=== PATIENT | female | born 1990 | race Caucasian/White ===

== ENCOUNTER 2018-10-10 02:45 | Inpatient (IN) | payer MEDICAID ==
[~2018-10-10] VITALS: Ht 157.5 cm; Wt 93.0 kg
[~2018-10-10 02:45] MED LIST: NAPR-1154 PO
[2018-10-10] MEDS ORDERED: normal saline 1000ML IV soln IV ONE (03:05)
[2018-10-10] MEDS ORDERED: clindamycin 600mg/D5W 50ml 50 ML IV ONE (03:05)
[2018-10-10] MEDS ORDERED: iohexol 300mg/ml 100ml inj. ONE (03:13)
[2018-10-10 03:59] LABS: BASOPHILS # (AUTO) 0.1 X10'3 (0-0.2); BASOPHILS % (AUTO) 0.6 % (0-1); EOSINOPHILS # (AUTO) 0.4 X10'3 (0-0.9); EOSINOPHILS % (AUTO) 2.8 % (0-6); HEMOGLOBIN 13.6 g/dl (12.0-16.0); LYMPHOCYTES # (AUTO) 1.5 X10'3 (1.1-4.8); LYMPHOCYTES % (AUTO) 10.5 % (21-51); MEAN CORPUSCULAR HEMOGLOBIN 27.7 PG (27.0-31.0); MEAN CORPUSCULAR HGB CONC 33.2 g/dL (33.0-36.5); MEAN CORPUSCULAR VOLUME 83.4 FL (78-98); MEAN PLATELET VOLUME 7.4 FL (7.4-10.4); MONOCYTES % (AUTO) 7.3 % (2-12); NEUTROPHILS # (AUTO) 11.2 X10'3 (1.8-7.7); NEUTROPHILS % (AUTO) 78.8 % (42-75); PLATELET COUNT 306 X10'3 (140-440); RED BLOOD COUNT 4.91 X10'6 (4.20-5.60); RED CELL DISTRIBUTION WIDTH 14.8 % (11.5-14.5); WHITE BLOOD COUNT 14.2 X10'3 (4.5-11.0)
[2018-10-10 04:15] LABS: ALANINE AMINOTRANSFERASE 23 U/L (12-78); ALBUMIN 3.6 G/DL (3.4-5.0); ALBUMIN/GLOBULIN RATIO 0.9 (1.1-1.5); ALKALINE PHOSPHATASE 100 IU/L (46-116); ANION GAP 7 (8-16); ASPARTATE AMINO TRANSFERASE 15 U/L (10-37); BILIRUBIN,TOTAL 0.4 MG/DL (0.1-1.0); BLOOD UREA NITROGEN 8 MG/DL (7-18); CALCIUM 9.6 MG/DL (8.5-10.1); CHLORIDE 102 MMOL/L (99-107); GLUCOSE 96 MG/DL (70-104); MAGNESIUM 1.6 MG/DL (1.5-2.4); POTASSIUM 4.1 MMOL/L (3.5-5.1); SODIUM 138 MMOL/L (135-145); TOTAL CARBON DIOXIDE 29.5 MMOL/L (24-32); TOTAL PROTEIN 7.7 G/DL (6.4-8.2); eGFR 87 ML/MIN
[2018-10-10 04:19] LABS: PARTIAL THROMBOPLASTIN TIME 31 SECONDS (22-32)
[2018-10-10] MEDS ORDERED: NO HOME MEDS (05:25)
--- NOTE | 2018-10-10 05:25 | NUR ---
DR. MACK AT BEDSIDE TALKING WITH PATIENT
[2018-10-10] MEDS ORDERED: acetaminophen 325mg tablet PO PRN (05:30)
[2018-10-10] MEDS ORDERED: mag hydrox/Alum hydrox/simeth 30ml oral suspension PO PRN (05:30)
[2018-10-10] MEDS ORDERED: magnesium hydroxide 30ml (MOM) UD suspension PO PRN (05:30)
[2018-10-10] MEDS ORDERED: vancomycin/NS 1 GM ADD-VANTAGE 250 ML IV ONE (05:30)
[2018-10-10] MEDS ORDERED: ondansetron/PF 4mg/2ml inj IV PRN (05:30)
[2018-10-10] MEDS ORDERED: morphine 2 MG/ML inj. syringe IV PRN (05:30)
[2018-10-10] MEDS: normal saline 1000ml 1,000 ML IV SCH ×3 (06:39→22:02)
--- NOTE | 2018-10-10 06:48 | NUR ---
received report from Adwoa in the ER
[2018-10-10] MEDS ORDERED: vancomycin inj 1,250 MG in NS 250ml IV soln IV SCH (07:00)
--- NOTE | 2018-10-10 07:25 | NUR ---
patient arrived to floor went into room 4011
[2018-10-10 07:39] VITALS: BP 156/102
[2018-10-10] MEDS ORDERED: ringers solution, lacted 1,000 ML IV ONE (07:40)
[2018-10-10 07:47] LABS: URINE HCG NEGATIVE (NEG)
[2018-10-10 08:32] LABS: CLARITY,URINE CLOUDY (Clear); COLOR,URINE YELLOW (Yellow); GLUCOSE, URINE NEGATIVE (Neg); KETONES,URINE NEGATIVE (Neg); LEUKOCYTE ESTERASE ,URINE SMALL (Neg); NITRITES, URINE POSITIVE (Neg); OCCULT BLOOD,URINE NEGATIVE (Neg); PH,URINE 7.5 (4.8-8.0); PROTEIN,URINE NEGATIVE (Neg); UROBILINOGEN,URINE 0.2 E.U/dL (0.2-1.0)
[2018-10-10 08:37] LABS: UA COLLECTION TYPE CLN CATCH MIDSTREAM
[2018-10-10 08:38] LABS: BACTERIA,URINE 3+ /HPF (Neg); MUCUS STRANDS FEW /LPF (Neg); RBC,URINE 0-2 /HPF (0-2); SQUAMOUS EPITHELIAL CELL,UR MODERATE /LPF (FEW)
[2018-10-10] MEDS: clindamycin 600mg/D5W 50ml 50 ML IV SCH ×3 (08:44→19:18)
[2018-10-10] MEDS: vancomycin inj 1,250 MG in NS 250ml IV soln IV SCH ×2 (09:37→15:34)
[2018-10-10 10:00] VITALS: BP 128/79
--- NOTE | 2018-10-10 14:19 | NUR ---
Extended PIV inserted to left upper arm cephalic vein x 2 attempts using ultrasound. Vane well Addendum: 10/10/18 at 1420 by Carli Herring RN Amended: Links added.
--- NOTE | 2018-10-10 18:15 | NUR ---
Problems reprioritized. Patient report given, questions answered & plan of care reviewed with Kena FERRO.
[2018-10-10] MEDS: HYDROcodone/acetaminophen 10/325mg tab PO PRN (19:18)
[2018-10-10] MEDS: nicotine 14mg patch - 24hr TD SCH (19:18)
[2018-10-10 20:12] VITALS: BP 129/77
[2018-10-10 22:25] VITALS: BP 124/73
[2018-10-11] MEDS: vancomycin inj 1,250 MG in NS 250ml IV soln IV SCH (00:13)
[2018-10-11] MEDS: clindamycin 600mg/D5W 50ml 50 ML IV SCH ×4 (02:50→19:45)
[2018-10-11 06:00] VITALS: BP 125/80
--- NOTE | 2018-10-11 06:30 | NUR ---
Patient in room [facility]TH[facility] 4018. I have received report from Kena FERRO and had the opportunity to ask questions and assume patient care.
--- NOTE | 2018-10-11 06:33 | NUR ---
reported to days. noted pt resting w/o distress
[2018-10-11] MEDS: HYDROcodone/acetaminophen 10/325mg tab PO PRN ×2 (07:03→18:34)
[2018-10-11] MEDS: nicotine 14mg patch - 24hr TD SCH (07:43)
[2018-10-11] MEDS ORDERED: VANCOMYCIN LEVEL IV ONE (08:30)
[2018-10-11 09:22] LABS: BASOPHILS # (AUTO) 0.1 X10'3 (0-0.2); BASOPHILS % (AUTO) 0.7 % (0-1); EOSINOPHILS # (AUTO) 0.3 X10'3 (0-0.9); EOSINOPHILS % (AUTO) 4.4 % (0-6); HEMATOCRIT 34.6 % (35.0-45.0); HEMOGLOBIN 11.5 g/dl (12.0-16.0); LYMPHOCYTES # (AUTO) 1.1 X10'3 (1.1-4.8); LYMPHOCYTES % (AUTO) 15.4 % (21-51); MEAN CORPUSCULAR HEMOGLOBIN 27.8 PG (27.0-31.0); MEAN CORPUSCULAR HGB CONC 33.2 g/dL (33.0-36.5); MEAN CORPUSCULAR VOLUME 83.7 FL (78-98); MEAN PLATELET VOLUME 7.4 FL (7.4-10.4); MONOCYTES # (AUTO) 0.5 X10'3 (0-0.9); NEUTROPHILS # (AUTO) 5.1 X10'3 (1.8-7.7); NEUTROPHILS % (AUTO) 72.5 % (42-75); PLATELET COUNT 249 X10'3 (140-440); RED BLOOD COUNT 4.14 X10'6 (4.20-5.60); RED CELL DISTRIBUTION WIDTH 14.5 % (11.5-14.5)
[2018-10-11 09:34] LABS: ALANINE AMINOTRANSFERASE 18 U/L (12-78); ALBUMIN 2.5 G/DL (3.4-5.0); ALBUMIN/GLOBULIN RATIO 0.7 (1.1-1.5); ALKALINE PHOSPHATASE 71 IU/L (46-116); ANION GAP 3 (8-16); ASPARTATE AMINO TRANSFERASE 14 U/L (10-37); BILIRUBIN,TOTAL 0.2 MG/DL (0.1-1.0); BLOOD UREA NITROGEN 10 MG/DL (7-18); BUN/CREATININE RATIO 18.5 (6.6-38.0); CALCIUM 8.2 MG/DL (8.5-10.1); CHLORIDE 106 MMOL/L (99-107); CREATININE 0.54 MG/DL (0.40-0.90); GLUCOSE 110 MG/DL (70-104); SODIUM 137 MMOL/L (135-145); TOTAL CARBON DIOXIDE 28.3 MMOL/L (24-32); TOTAL PROTEIN 6.1 G/DL (6.4-8.2); eGFR > 90 ML/MIN
[2018-10-11 10:00] VITALS: BP 123/81
[2018-10-11] MEDS: normal saline 1000ml 1,000 ML IV SCH ×2 (13:21→23:38)
--- NOTE | 2018-10-11 16:20 | NUR ---
Student documentation: I have reviewed and agree with all interventions, assessments performed and documented by SN Monica.
[2018-10-11 18:00] VITALS: BP 145/97
--- NOTE | 2018-10-11 18:13 | NUR ---
Problems reprioritized. Patient report given, questions answered & plan of care reviewed with Keli FERRO.
--- NOTE | 2018-10-11 18:38 | NUR ---
Patient in room [facility]TH[facility] 4018. I have received report from PILLO Strauss and had the opportunity to ask questions and assume patient care.
[2018-10-11] MEDS: lactobacillus rhamnosus 10,000 MMU CELLS/CAPSULE PO SCH (19:45)
[2018-10-11 22:00] VITALS: BP 145/90
[2018-10-12] MEDS: clindamycin 600mg/D5W 50ml 50 ML IV SCH ×2 (01:40→07:24)
[2018-10-12] MEDS: HYDROcodone/acetaminophen 10/325mg tab PO PRN ×3 (01:40→19:28)
[2018-10-12 06:00] VITALS: BP 125/89
--- NOTE | 2018-10-12 06:21 | NUR ---
Problems reprioritized. Patient report given, questions answered & plan of care reviewed with PILLO Brothers.
--- NOTE | 2018-10-12 06:46 | NUR ---
Patient in room [facility]TH[facility] 4018. I have received report from Keli FERRO and had the opportunity to ask questions and assume patient care.
[2018-10-12 06:49] LABS: BASOPHILS % (AUTO) 0.7 % (0-1); EOSINOPHILS # (AUTO) 0.4 X10'3 (0-0.9); EOSINOPHILS % (AUTO) 5.4 % (0-6); HEMATOCRIT 33.7 % (35.0-45.0); HEMOGLOBIN 11.3 g/dl (12.0-16.0); LYMPHOCYTES % (AUTO) 27.6 % (21-51); MEAN CORPUSCULAR HEMOGLOBIN 28.5 PG (27.0-31.0); MEAN CORPUSCULAR HGB CONC 33.7 g/dL (33.0-36.5); MEAN CORPUSCULAR VOLUME 84.8 FL (78-98); MEAN PLATELET VOLUME 7.6 FL (7.4-10.4); MONOCYTES # (AUTO) 0.6 X10'3 (0-0.9); MONOCYTES % (AUTO) 7.9 % (2-12); NEUTROPHILS # (AUTO) 4.2 X10'3 (1.8-7.7); NEUTROPHILS % (AUTO) 58.4 % (42-75); PLATELET COUNT 272 X10'3 (140-440); RED BLOOD COUNT 3.97 X10'6 (4.20-5.60); RED CELL DISTRIBUTION WIDTH 14.6 % (11.5-14.5); WHITE BLOOD COUNT 7.1 X10'3 (4.5-11.0)
[2018-10-12] MEDS: normal saline 1000ml 1,000 ML IV SCH ×3 (07:23→21:33)
[2018-10-12] MEDS: lactobacillus rhamnosus 10,000 MMU CELLS/CAPSULE PO SCH ×2 (07:24→19:22)
[2018-10-12] MEDS: nicotine 14mg patch - 24hr TD SCH (07:24)
[2018-10-12 07:25] LABS: ALANINE AMINOTRANSFERASE 17 U/L (12-78); ALBUMIN 2.3 G/DL (3.4-5.0); ALBUMIN/GLOBULIN RATIO 0.6 (1.1-1.5); ALKALINE PHOSPHATASE 61 IU/L (46-116); ANION GAP 8 (8-16); ASPARTATE AMINO TRANSFERASE 17 U/L (10-37); BILIRUBIN,TOTAL 0.1 MG/DL (0.1-1.0); BLOOD UREA NITROGEN 8 MG/DL (7-18); BUN/CREATININE RATIO 17.4 (6.6-38.0); CALCIUM 7.6 MG/DL (8.5-10.1); CHLORIDE 109 MMOL/L (99-107); CREATININE 0.46 MG/DL (0.40-0.90); GLUCOSE 80 MG/DL (70-104); SODIUM 139 MMOL/L (135-145); TOTAL CARBON DIOXIDE 22.4 MMOL/L (24-32); TOTAL PROTEIN 5.9 G/DL (6.4-8.2); eGFR > 90 ML/MIN
[2018-10-12 10:00] VITALS: BP 113/71
[2018-10-12] MEDS: linezolid 600mg tablet PO SCH ×2 (10:10→19:22)
[2018-10-12] MEDS: HYDROcodone/acetaminophen 5mg/325mg tablet PO PRN (13:37)
[2018-10-12 18:00] VITALS: BP 117/82
--- NOTE | 2018-10-12 18:25 | NUR ---
Problems reprioritized. Patient report given, questions answered & plan of care reviewed with Ioana FERRO.
[2018-10-12 22:00] VITALS: BP 140/91
[2018-10-13 06:00] VITALS: BP 132/81
--- NOTE | 2018-10-13 06:10 | NUR ---
Patient in room [facility]TH[facility] 4018. I have received report from Ioana FERRO and had the opportunity to ask questions and assume patient care.
--- NOTE | 2018-10-13 06:40 | NUR ---
REPORT TO ANDREE FERRO
[2018-10-13] MEDS: HYDROcodone/acetaminophen 5mg/325mg tablet PO PRN (07:19)
[2018-10-13] MEDS: lactobacillus rhamnosus 10,000 MMU CELLS/CAPSULE PO SCH (07:19)
[2018-10-13] MEDS: linezolid 600mg tablet PO SCH (07:19)
[2018-10-13] MEDS: nicotine 14mg patch - 24hr TD SCH (07:20)
[2018-10-13] MEDS ORDERED: LINE600T32 PO (09:12)
[2018-10-13] MEDS ORDERED: HYDR-4383 PO (09:12)
[2018-10-13 09:16] LABS: BASOPHILS % (AUTO) 0.5 % (0-1); EOSINOPHILS # (AUTO) 0.3 X10'3 (0-0.9); EOSINOPHILS % (AUTO) 4.4 % (0-6); HEMATOCRIT 39.7 % (35.0-45.0); HEMOGLOBIN 13.3 g/dl (12.0-16.0); LYMPHOCYTES # (AUTO) 1.5 X10'3 (1.1-4.8); LYMPHOCYTES % (AUTO) 18.2 % (21-51); MEAN CORPUSCULAR HEMOGLOBIN 27.9 PG (27.0-31.0); MEAN CORPUSCULAR HGB CONC 33.4 g/dL (33.0-36.5); MEAN CORPUSCULAR VOLUME 83.4 FL (78-98); MEAN PLATELET VOLUME 7.7 FL (7.4-10.4); MONOCYTES # (AUTO) 0.5 X10'3 (0-0.9); MONOCYTES % (AUTO) 6.2 % (2-12); NEUTROPHILS # (AUTO) 5.6 X10'3 (1.8-7.7); NEUTROPHILS % (AUTO) 70.7 % (42-75); PLATELET COUNT 292 X10'3 (140-440); RED BLOOD COUNT 4.76 X10'6 (4.20-5.60); RED CELL DISTRIBUTION WIDTH 14.6 % (11.5-14.5)
[2018-10-13 09:27] LABS: ALANINE AMINOTRANSFERASE 17 U/L (12-78); ALBUMIN/GLOBULIN RATIO 0.6 (1.1-1.5); ALKALINE PHOSPHATASE 76 IU/L (46-116); ANION GAP 6 (8-16); ASPARTATE AMINO TRANSFERASE 14 U/L (10-37); BILIRUBIN,TOTAL 0.2 MG/DL (0.1-1.0); BLOOD UREA NITROGEN 10 MG/DL (7-18); BUN/CREATININE RATIO 16.9 (6.6-38.0); CALCIUM 9.1 MG/DL (8.5-10.1); CHLORIDE 104 MMOL/L (99-107); CREATININE 0.59 MG/DL (0.40-0.90); GLUCOSE 103 MG/DL (70-104); POTASSIUM 4.2 MMOL/L (3.5-5.1); SODIUM 137 MMOL/L (135-145); TOTAL CARBON DIOXIDE 26.7 MMOL/L (24-32); TOTAL PROTEIN 7.7 G/DL (6.4-8.2); eGFR > 90 ML/MIN
[2018-10-13 10:00] VITALS: BP 153/88
--- NOTE | 2018-10-13 12:30 | NUR ---
Patient stable for discharge home today. All instructions given to patient. IV out. [place] prescription given to patient.
--- NOTE | 2018-10-13 12:48 | NUR ---
kuldip consult: Pt was d/c home prior to RD visit w/ newly added kuldip. Written [facility]ger[facility] ed w/ RD contact information mailed to pt home address on EMR. Addendum: 10/13/18 at [address] Amended: Links added.
== END 2018-10-13 12:20 | disposition home or self-care (01) | DRG 383 ==
LOC: ER 02:45 → ORTHO 4S 07:19 → CMPBEDREQ 07:21
PROVIDERS: ADMIT Internal Medicine; ATTEND Internal Medicine
PROC: BP2T1ZZ Computerized Tomography (CT Scan) of Right Upper Extremity using Low Osmolar Contrast (ICD-10-PCS; principal; 2018-10-10)
DX: L03.113 Cellulitis of right upper limb (principal); M72.6 Necrotizing fasciitis; L02.511 Cutaneous abscess of right hand; F15.90 Other stimulant use, unspecified, uncomplicated; F12.90 Cannabis use, unspecified, uncomplicated; R00.0 Tachycardia, unspecified; Z59.0 Homelessness; Z72.0 Tobacco use; Z88.1 Allergy status to other antibiotic agents; Z88.0 Allergy status to penicillin; Z71.51 Drug abuse counseling and surveillance of drug abuser
CPT/HCPCS: 36415; 73201; 80053; 81001; 81025; 83605; 83735; 84145; 85025; 85610; 85730; 87040; 87070; 87077; 87088; 87186; 96365; 99285; G0378; J2405; J3370; J3490; J7030; J7120; Q9967